=== PATIENT | female | born 1955 | race Caucasian/White ===

== ENCOUNTER 2017-04-16 17:41 | Emergency (ER) | payer BC ==
--- NOTE | 2017-04-16 18:10 | Emergency Department Record ---
History of Present Illness - General Chief Complaint: Ankle/Foot Injury Stated Complaint: ANKLE PAIN Time Seen by Provider: 04/16/17 18:03 Source: Patient Mode of Arrival: Ambulatory - History of Present Illness Initial Comments: The patient states that her right ankle began hurting her on the lateral aspect about 2 weeks before Eri. The past few days it has been hurting more as she was onit more preparing for Eri and entertaining house guests. She doesn't recall any specific injury to it. It does hurt continuously, but more so with ambulation and weight bearing. She has not been taking medication for the pain, has not used crutches or ankle supports, and has not seen a physician before now for this. She denies other complaints. Onset/Timin -: Week(s) Place: Home Severity: Moderate Severity scale (1-10): 7 Improves With: Nothing Worsens With: Weight bearing - Related Data Home Medications Medication Instructions Recorded Confirmed Last Taken No Home Med [NO HOME MEDS] 04/16/17 04/16/17 Unknown Allergies Allergy/AdvReac Type Severity Reaction Status Date / Time No Known Drug Allergies Allergy Verified 04/16/17 17:55 Travel Screening - Travel/Exposure Within Last 30 Days Have you traveled within the last 30 days?: No Review of Systems Reviewed: No additional complaints except as noted below Constitutional: Reports: As per HPI. Denies: Chills, Fever, Malaise, Night sweats, Weakness, Weight change Eyes: Reports: As per HPI. Denies: Eye discharge, Eye pain, Photophobia, Vision change ENT: Reports: As per HPI. Denies: Congestion, Dental pain, Ear pain, Epistaxis , Hearing loss, Throat pain Respiratory: Reports: As per HPI. Denies: Cough, Dyspnea, Hemoptysis, Stridor, Wheezes Cardiovascular: Reports: As per HPI. Denies: Arrhythmia, Chest pain, Dyspnea on exertion, Edema, Murmurs, Orthopnea, Palpitations, Paroxysmal nocturnal dyspnea, Rheumatic Fever, Syncope Endocrine: Reports: As per HPI. Denies: Fatigue, Heat or cold intolerance, Polydipsia, Polyuria Gastrointestinal: Reports: As per HPI. Denies: Abdominal pain, Constipation, Diarrhea, Hematemesis, Hematochezia, Melena, Nausea, Vomiting Genitourinary: Reports: As per HPI. Denies: Abnormal menses, Discharge, Dyspareunia, Dysuria, Frequency, Hematuria, Incontinence, Retention, Urgency Musculoskeletal: Reports: As per HPI. Denies: Arthralgia, Back pain, Gout, Joint swelling, Myalgia, Neck pain Skin: Reports: As per HPI. Denies: Bruising, Change in color, Change in hair/ nails, Lesions, Pruritus, Rash Neurological: Reports: As per HPI. Denies: Abnormal gait, Confusion, Headache, Numbness, Paresthesias, Seizure, Tingling, Tremors, Vertigo, Weakness Psychiatric: Reports: As per HPI. Denies: Anxiety, Auditory hallucinations, Depression, Homicidal thoughts, Suicidal thoughts, Visual hallucinations Hematological/Lymphatic: Reports: As per HPI. Denies: Anemia, Blood Clots, Easy bleeding, Easy bruising, Swollen glands Past Medical History - SOCIAL HISTORY Smoking Status: Never smoker Alcohol Use: None Drug Use: None - RESPIRATORY Hx Respiratory Disorders: Yes Hx Asthma: Yes (has prn inhaler uses rarely) Hx Bronchitis: Yes - CARDIOVASCULAR Hx Cardio Disorders: Yes Hx Palpitations: Yes (hx 3 years ago) - NEURO Hx Neuro Disorders: Yes Hx Headaches: Yes (occass usually related to sinus) - GI Hx GI Disorders: No - Hx Genitourinary Disorders: No - ENDOCRINE Hx Endocrine Disorders: No - MUSCULOSKELETAL Hx Musculoskeletal Disorders: Yes - PSYCH Hx Psych Problems: No - HEMATOLOGY/ONCOLOGY Hx Hematology/Oncology Disorders: No Family Medical History Any Significant Family History?: Yes Hx Cancer: Father Hx Resp Disorders: Father, Mother Physical Exam - General General Appearance: Alert, Oriented x3, Cooperative, No acute distress - Head Head exam: Normal inspection - Eye Eye exam: Normal appearance, PERRL Pupils: Normal accommodation - ENT ENT exam: Normal exam, Mucous membranes moist, Normal external ear exam, Normal orophraynx, TM's normal bilaterally Ear exam: Normal external inspection. negative: External canal tenderness Nasal Exam: Normal inspection. negative: Discharge, Sinus tenderness Mouth exam: Normal external inspection, Tongue normal Teeth exam: Normal inspection. negative: Dental caries Throat exam: Normal inspection. negative: Tonsillar erythema, Tonsillar exudate - Neck Neck exam: Normal inspection, Full ROM. negative: Tenderness - Respiratory Respiratory exam: Normal lung sounds bilaterally. negative: Respiratory distress - Cardiovascular Cardiovascular Exam: Regular rate, Normal rhythm, Normal heart sounds - GI/Abdominal GI/Abdominal exam: Soft. negative: Tenderness - Rectal Rectal exam: Deferred - exam: Deferred - Extremities Extremities exam: Normal inspection, Full ROM, Normal capillary refill, Tenderness (tender over tip of lateral malleolus on palpation, no obvious swelling, nontender prox fib, foot, and medial malleolus. CMS intact distally.) . negative: Calf tenderness - Back Back exam: Reports: Normal inspection, Full ROM. Denies: Muscle spasm, Rash noted, Tenderness - Neurological Neurological exam: Alert, Normal gait, Oriented X3, Reflexes normal - Psychiatric Psychiatric exam: Normal affect, Normal mood - Skin Skin exam: Dry, Intact, Normal color, Warm Course Vital Signs 04/16/17 17:49 Temperature 97.5 F L Pulse Rate 66 Respiratory 20 Rate Blood Pressure 132/71 Pulse Ox 98 - Reevaluation(s) Reevaluation #1: Ptient was offered tylenol or ibuprofen but declined them both. 04/16/17 18:15 Reevaluation #2: All questions answered, Instructions given. Patient has crutches and an jacobo wrap at home which she used one day only sometime before Eri. She will use an air splint and /or jacobo wrap for 5-7 days with NO weight bearing before scheduling office appointment with her PCP> 04/16/17 18:39 Medical Decision Making - Management Options MDM Management: No Additional Work-up Planned - Data Complexity MDM Data: X-Ray Ordered and/or Reviewed (Right ankle xray: Neg per radiologist.) Disposition Disposition: Discharge Clinical Impression: Right ankle injury Qualifiers: Encounter type: initial encounter Qualified Code(s): S99.911A - Unspecified injury of right ankle, initial encounter Disposition: Home, Self-Care Condition: (1) Good Instructions: Ankle Sprain Exercises (GEN) Additional Instructions: NO weight bearing. Crutches. Jacobo wrap with air splint to right ankle. Tylenol or ibuprofen as directed if needed for pain. Follow up with PCP next week, 5-7 days for recheck after no weight bearing until then. Quality - Quality Measures Quality Measures: N/A - Blood Pressure Screening Does Patient Have Any of the Following: No Blood Pressure Classification: Pre-Hypertensive BP Reading Systolic Measurement: 132 Diastolic Measurement: 71 Screening for High Blood Pressure: < Normal BP, F/U Not Required > [[id number]]
--- NOTE | 2017-04-18 01:14 | RADIOLOGY REPORT ---
EXAM: ANKLE RIGHT 3 VIEWS HISTORY: LATERAL PAIN FOR ONE MONTH. NO KNOWN INJURY. TECHNIQUE: Right ankle, three views. FINDINGS: Bones are osteopenic. No fracture or malalignment. Ankle mortise is intact. Mild lateral malleolar soft tissue swelling. IMPRESSION: NO ACUTE OSSEOUS ABNORMALITY RIGHT ANKLE. JOB NUMBER: [id number] MTDD
== END 2017-04-16 18:54 | disposition home or self-care (01) ==
LOC: ER 17:41
DX: S99.911A Unspecified injury of right ankle, initial encounter (principal); X58.XXXA Exposure to other specified factors, initial encounter; Y92.009 Unspecified place in unspecified non-institutional (private) residence as the place of occurrence of the external cause
CPT/HCPCS: 99283